=== PATIENT | male | born 1970 | race Caucasian/White ===

== ENCOUNTER 2024-09-05 14:39 | Outpatient (AMB) | payer BC, SELFPAY ==
--- NOTE | 2024-09-05 14:43 | MHC.PC.OV ---
Vital Signs 09/05/24 15:02 Height 5 ft 5 in Weight 251 lb BMI 41.8 BP 122/76 Blood Pressure Location Lt brachial Position Sitting Pulse 81 Pulse Source Pulse Oximeter Pulse Oximetry (%) 95 Oxygen Delivery Method Room Air Intake Visit Reasons: Transfer of care Est Care Intake Note: New patient visit Ophthalmic Pathologist Required: No Allergies No Known Allergies Allergy (Verified 09/05/24 14:49) Tobacco use date assessed: 09/05/24 Dental Screening Dental Screen Date: 09/05/24 Did you have a dental visit in the last 12 months?: Yes Did you have a dental problem in the last 6 months where you did not have access to dental care?: No Was dental information given to patient?: Patient has dentist HPI HPI Comments History of Present Illness Details 53 year old male with a past medical of diabetes, hyperlipidemia presenting for follow up of diabetes Diabetes: Last A1C 9.0%. 6.6% in 2022. On metformin, actos 30mg daily. He will have labs today. Blood glucose has been well controlled CV: Elevated triglyceraides Referred for colonoscopy at last visit ROS CONSTITUTIONAL: Denies weight loss, fever and chills. HEENT: Denies changes in vision and hearing. RESPIRATORY: Denies SOB and cough. CV: Denies palpitations and CP GI: Denies abdominal pain, nausea, vomiting and diarrhea. : Denies dysuria and urinary frequency. MSK: Denies new myalgia and joint pain. SKIN: Denies rash and pruritus. NEUROLOGICAL: Denies headache PSYCHIATRIC: Denies recent changes in mood. PHYSICAL EXAM: GENERAL: Alert and oriented x 3. NAD EYES: EOMI. Anicteric. HENT: Moist mucous membranes. No scleral icterus. No cervical lymphadenopathy. LUNGS: Clear to auscultation bilaterally. CARDIOVASCULAR: Regular rate and rhythm. No murmur. No JVD. ABDOMEN: Soft, non-tender +bs EXTREMITIES: No edema. Non-tender. SKIN: No rashes or lesions. Warm. NEUROLOGIC: No focal neurological deficits. CN II-XII grossly intact PSYCHIATRIC: Cooperative. Appropriate mood and affect [facility] Family History Mother Diverticulitis Father Diabetes mellitus Other Breast cancer Neoplasm, brain Social History Housing: House Housing Other:: house, and town house in [place] Alcohol intake: current Patient Tobacco Use Status: Never used Tobacco e-Cigarette/Vaping Use: Never Used Second Hand Smoke Exposure: No Substance Use Type: Former Substance User and Marijuana service: Yes Current occupational status: employed Current occupation: business project manager Current occupational exposures/hazards: No Cognitive needs: No Hearing needs: No Vision needs: No Questionnaire PHQ-9 Over the last 2 weeks, how often have you been bothered by any of the following problems? 1. Little interest or pleasure in doing things: not at all 2. Feeling down, depressed, or hopeless: not at all 3. Trouble falling or staying asleep, or sleeping too much: not at all 4. Feeling tired or having little energy: not at all 5. Poor appetite or overeating: not at all 6. Feeling bad about yourself - or that you are a failure or have let yourself or your family down: not at all 7. Trouble concentrating on things, such as reading the newspaper or watching television: not at all 8. Moving or speaking so slowly that other people could have noticed. Or the opposite - being so fidgety or restless that you have been moving around a lot more than usual: not at all 9. Thoughts that you would be better off or of hurting yourself in some way: not at all Total score: 0 Depression Screening Interpretation: Negative Depression Screening Done: Yes 02931 - PHQ-9 Billing: Yes Source: Developed by Drs. Tomi Laird, Vita Dietrich, Joshua Clark and colleagues, with an educational irma from [employer]. Thrive Questionnaire Date Thrive assessed: 09/05/24 I am a: Patient What is your living situation today?: I have a steady place to live Within the past 12 months, did the food you bought not last and you didn't have the money to get more?: I choose not to answer this question Within the past 12 months, did you worry whether your food would run out before you got money to buy more?: I choose not to answer this question Do you have trouble paying for medicines?: I choose not to answer this question Do you have trouble getting transportation to medical appointments?: No Do you have trouble paying your heating and electricity bill?: No Do you have trouble taking care of your child, family member or friend?: No Do you have trouble with day-to-day activities such as bathing, preparing meals, shopping, managing finances, etc.?: No Are you currently unemployed and looking for a job?: No Are you interested in more education?: No Please select the resources that you would like help with: None Currently or been in a relationship where the following occur: I choose not to answer THRIVE Score: 0 AUDIT C Alcohol Use Questionnaire (AUDIT-C) 1. How often do you have a drink containing alcohol?: 2-3 times a week 2. How many drinks containing alcohol do you have on a typical day when you are drinking?: 1 or 2 3. How often do you have six or more drinks on one occasion?: Monthly Total Score: 5 FATIMAH-7 AMB Questionnaire FATIMAH-7 Date FATIMAH - 7 assessed: 09/05/24 Feeling nervous, anxious, or on edge: 0 = Not at all Not being able to stop or control worryin = Not at all Worrying too much about different things: 0 = Not at all Trouble relaxin = Not at all Being so restless that it is hard to sit still: 0 = Not at all Becoming easily annoyed or irritable: 0 = Not at all Feeling afraid as if something awful might happen: 0 = Not at all Total FATIMAH-7 score (0-4 normal; 5-9 mild; 10-14 moderate; 15-21 severe): 0 Source: Developed by Drs. Tomi Laird, Vita Dietrich, Joshua Clark and colleagues, with an educational irma from [employer]. FATIMAH-7 Assessment Billing FATIMAH-7 Assessment Tool: FATIMAH-7 Assessment 85365 Physical exam (Primary Care) Vital Signs: Last Vital Signs Pulse 81 09/05/24 15:02 BP 122/76 09/05/24 15:02 Pulse Ox 95 09/05/24 15:02 Oxygen Delivery Method Room Air 09/05/24 15:02 BMI result Body Mass Index 41.8 Tobacco/Smoking Status: Tobacco use Status Tobacco use date assessed 09/05/24 09/05/24 14:50 Patient Tobacco Use Status Never used Tobacco 09/05/24 14:50 e-Cigarette/Vaping Use Never Used 09/05/24 14:50 PHQ-9: PHQ-9 Score PHQ-9: Total score 0 09/11/24 15:04 Depression Screening Interpretation: Negative Thrive Assessment: Date of Thrive Assessment Date Thrive assessed 09/05/24 09/05/24 14:50 Currently or been in a relationship where the following occur: I choose not to answer Coding Level of Care Code Est Pt Level 4 (65727) Complex EM visit Add On G2211 Diagnoses Type 2 diabetes mellitus without complication, without long-term current use of insulin E11.9 Diabetes mellitus complication status: without complication Diabetes mellitus skilled nursing insulin use: without skilled nursing use Hyperglycemia R73.9 Hypertriglyceridemia E78.1 Additional Codes FATIMAH-7 Assessment Billing - FATIMAH-7 Assessment Tool: FATIMAH-7 Assessment 98801 ([id number]) PHQ-9 - 71568 - PHQ-9 Billing: Yes ([id number]) Assessment & Plan Assessment & Plan (1) Type 2 diabetes mellitus: Code(s): E11.9 - Type 2 diabetes mellitus without complications Category: Medical Qualifiers: Diabetes mellitus complication status: without complication Diabetes mellitus skilled nursing insulin use: without skilled nursing use Qualified Code(s): E11.9 - Type 2 diabetes mellitus without complications Plan: Previous A1C elevated Notes improved control. Fasting blood glucose has been in range He would like to lose weight. Rasheed 2.5 sent. (2) Hyperglycemia: Code(s): R73.9 - Hyperglycemia, unspecified Category: Medical Plan: Pending labs (3) Hypertriglyceridemia: Code(s): E78.1 - Pure hyperglyceridemia Category: Medical Plan: Labs ordered. weight loss recommended. declines statin therapy Orders: Orders Comprehensive Met. Panel 09/05/24 E11.9 - Type 2 diabetes mellitus without complications, E78.1 - Pure hyperglyceridemia, R73.9 - Hyperglycemia, unspecified Prostate Specific Antigen 09/05/24 E11.9 - Type 2 diabetes mellitus without complications, E78.1 - Pure hyperglyceridemia, R73.9 - Hyperglycemia, unspecified NE electromyogram (EMG) 09/09/24 E11.9 - Type 2 diabetes mellitus without complications, G25.2 - Other specified forms of tremor Hemoglobin A1c 09/05/24 E11.9 - Type 2 diabetes mellitus without complications, E78.1 - Pure hyperglyceridemia, G25.2 - Other specified forms of tremor, R73.9 - Hyperglycemia, unspecified Complete Blood Count Auto Diff 09/05/24 E11.9 - Type 2 diabetes mellitus without complications, E78.1 - Pure hyperglyceridemia, R73.9 - Hyperglycemia, unspecified TSH reflex Free T4 09/05/24 E11.9 - Type 2 diabetes mellitus without complications, R73.9 - Hyperglycemia, unspecified Referrals Neurology Referral E11.9 - Type 2 diabetes mellitus without complications, G25.2 - Other specified forms of tremor Medications: New pioglitazone 30 mg PO DAILY 90 tabs 3RF Mounjaro (tirzepatide) for 4 weeks 2.5 mg (0.5 mL) subcut QWEEK 2 mL 3RF NS metformin ER 1,000 mg (2 x 500 mg) PO BID 180 tabs 3RF
[2024-09-05 15:02] VITALS: BP 122/76; PULSE 81; O2SAT 95; BMI 41.8
== END 2024-09-05 15:45 | disposition home or self-care (01) ==
PROVIDERS: Visit Provider Internal Medicine
DX: E11.9 Type 2 diabetes mellitus without complications (principal); E78.1 Pure hyperglyceridemia

== ENCOUNTER → 2024-09-05 14:39 | Outpatient (BNVA) | payer BC, SELFPAY | PROVIDERS: Visit Provider Internal Medicine | DX: E11.65 Type 2 diabetes mellitus with hyperglycemia (principal); E78.1 Pure hyperglyceridemia; Z79.84 Long term (current) use of oral hypoglycemic drugs | CPT/HCPCS: 96127 ==

== ENCOUNTER 2024-09-05 15:45 | Outpatient (REF) | payer BC, SELFPAY ==
[2024-09-05 17:52] LABS: MANUAL DIFF FLAG NO
[2024-09-05 17:59] LABS: Basophils Percent Auto 0.8 % (0-2); Eosinophils Absolute Auto 0.1 X10*3/uL (0.0-0.4); Eosinophils Percent Auto 1.9 % (0-4); Hematocrit 46.3 % (42.0-52.0); Hemoglobin 16.3 g/dl (14.0-18.0); Imm Gran Abs Auto 0.02 X10*3/uL (0.00-0.03); Imm Gran Pct Auto 0.4 % (0.0-0.4); Lymphocytes Absolute Auto 1.7 X10*3/uL (1.2-4.9); Lymphocytes Percent Auto 36.3 % (20-40); Mean Corpuscular HGB Conc 35.2 g/dl (31.0-36.0); Mean Corpuscular Hemoglobin 30.8 pg (27.0-33.0); Mean Corpuscular Volume 87.5 fL (80.0-98.0); Mean Platelet Volume 9.5 fL (9.4-12.4); Monocytes Absolute Auto 0.5 X10*3/uL (0.1-1.2); Monocytes Percent Auto 11.3 % (2-11); Neutrophils Absolute Auto 2.4 x10*3/uL (2.0-8.3); Neutrophils Percent Auto 49.3 % (45-73); Platelet Count 183 X10*3/uL (160-400); Red Blood Count 5.29 X10*6/uL (4.60-5.80); Red Cell Distribution Width 13.2 % (11.0-16.0); White Blood Count 4.8 X10*3/uL (4.8-10.8)
[2024-09-05 18:11] LABS: Estimated Average Glucose 140 mg/dL; Hemoglobin A1c % 6.5 % (<6.0); Total Hemoglobin (HGBA1C) 4217.4684 umol/L
[2024-09-05 18:31] LABS: Alanine Aminotransferase 46 U/L (0-40); Albumin Level 4.6 g/dL (3.5-5.0); Alkaline Phosphatase 67 U/L (39-117); Anion Gap 12 (12-20); Aspartate Amino Transferase 29 U/L (5-37); Bilirubin Total 0.4 mg/dL (0.0-1.0); Blood Urea Nitrogen 19 mg/dL (9-16); Calcium 9.6 mg/dL (8.4-10.2); Carbon Dioxide 25 mmol/L (22-29); Chloride 106 mmol/L (96-108); Estimated Glomerular Filt Rate > 60; Glucose Random 125 mg/dL (60-115); Potassium 3.8 mmol/L (3.3-5.1); Sodium 139 mmol/L (135-145)
[2024-09-05 18:39] LABS: Prostate Specific Antigen 0.61 ng/mL (<0.05-4.0)
[2024-09-05 18:40] LABS: TSH reflex Free T4 1.02 uIU/mL (0.32-4.0)
== END 2024-09-05 15:46 | disposition home or self-care (01) ==
LOC: HO.WFDLDS 15:45
PROVIDERS: Visit Provider Internal Medicine
DX: E78.1 Pure hyperglyceridemia (principal); E11.9 Type 2 diabetes mellitus without complications; G25.2 Other specified forms of tremor; Z12.5 Encounter for screening for malignant neoplasm of prostate
CPT/HCPCS: 36415; 80053; 83036; 84153; 84443; 85025

== ENCOUNTER 2024-09-09 07:59 | Outpatient (REF) | payer BC, SELFPAY ==
--- NOTE | 2024-09-09 08:10 | EMG_ITS ---
Left median and ulnar motor and sensory studies were performed. Left radial and median and lateral antecubital brachial sensory studies were performed, and needle examination was performed. IMPRESSION: 1. Mild left median neuropathy across carpal tunnel. 2. Mild left ulnar neuropathy across cubital tunnel. 3. No evidence of plexopathy or radiculopathy. MD JERONIMO Rick/BETHANIE / [id number]
== END 2024-09-09 08:00 | disposition home or self-care (01) ==
LOC: HO.NEURO 07:59
PROVIDERS: PCP Internal Medicine; Visit Provider Internal Medicine
DX: G56.02 Carpal tunnel syndrome, left upper limb (principal); G25.2 Other specified forms of tremor; E11.9 Type 2 diabetes mellitus without complications
CPT/HCPCS: 95886; 95910